=== PATIENT | male | born 1995 | race African-American/Black ===

== ENCOUNTER 2016-10-17 05:46 | Emergency (ER) | payer OTHER ==
[~2016-10-17] VITALS: Ht 190.5 cm; Wt 95.0 kg
[~2016-10-17 05:46] MED LIST: CIPR-9 PO
[2016-10-17 06:17] VITALS: BP 150/68; PULSE 64; RESP 16; TEMP 98.1; O2SAT 98
[2016-10-17] MEDS ORDERED: methylPREDNISolone SOD SUCC 125 MG/2 ML VIAL IV PUSH ONE (07:30)
[2016-10-17] MEDS ORDERED: diphenhydrAMINE HCL 50 MG/ML VIAL IV PUSH ONE (07:30)
[2016-10-17] MEDS ORDERED: FAMOTIDINE 20 MG TAB PO ONE (07:30)
[2016-10-17 07:56] LABS: AUTOMATED NEUTROPHIL # 4.8 TH/MM3 (1.8-7.7); BASOPHIL % 0.4 % (0.0-2.0); EOSINOPHIL # 0.1 TH/MM3 (0-0.4); EOSINOPHIL % 1.4 % (0.0-4.0); HEMATOCRIT 41.9 % (39.0-51.0); HEMO FLAGS DIFF FINAL; LYMPH % 31.7 % (9.0-44.0); LYMPHOCYTE # 2.6 TH/MM3 (1.0-4.8); MEAN CELL VOLUME 78.5 FL (80.0-100.0); MEAN CORPUSCULAR HEMOGLOBIN 25.4 PG (27.0-34.0); MEAN CORPUSCULAR HGB CONC 32.4 % (32.0-36.0); MONO % 8.5 % (0.0-8.0); PLATELET COUNT 217 TH/MM3 (150-450); RED BLOOD COUNT 5.34 MIL/MM3 (4.50-5.90); RED CELL DISTRIBUTION WIDTH 15.3 % (11.6-17.2); WHITE BLOOD COUNT 8.2 TH/MM3 (4.0-11.0)
--- NOTE | 2016-10-17 08:05 | PD ---
HPI Chief Complaint: Eye Problems/Injury Time Seen by Provider: 07:11 Travel History International Travel<30 days: No Contact w/Intl Traveler<30days: No Traveled to known affect area: No History of Present Illness HPI Patient is a 20-year-old male comes in complaining of swelling to his left eye as well as itching to his face. He says this started early this morning around 4 AM. He first noticed itching to the eye, and then it became very swollen. He says he has had some nasal congestion. He denies any pain to his eye. He denies any vision changes. He denies any injury to the eye. He says shortly after his eye started bothering him, he felt itching all over his face. He denies any allergies. He denies any shortness of breath or swelling in his throat. He says he was cutting fish last night, and ate some Ramone sauce and pasta. He denies any new medications. He does say that he took some ibuprofen earlier in the night. He also says that he has been using a new fabric softener. He denies itching or rash on the rest of his body. [facility] Past Medical History Medical History: Denies Significant Hx Diminished Hearing: No Tetanus Vaccination: < 5 Years Influenza Vaccination: Yes Social History Alcohol Use: Yes (SOCIALLY) Tobacco Use: No Substance Use: No Allergies-Medications (Allergen,Severity, Reaction): Coded Allergies: No Known Allergies (Unverified , 10/17/16) Reported Meds & Prescriptions Reported Meds & Active Scripts Active Prednisone 50 Mg Tab 50 Mg PO DAILY 3 Days Review of Systems Except as stated in HPI: all other systems reviewed are Neg General / Constitutional: No: Fever, Chills Eyes: No: Blurred Vision, Pain, Visual changes HENT: Positive: Rhinorrhea, No: Headaches, Lightheadedness Respiratory: No: Shortness of Breath Gastrointestinal: No: Nausea, Vomiting Musculoskeletal: No: Edema, Pain Skin: Positive Itching Neurologic: No: Weakness, Dizziness Physical Exam Narrative GENERAL: Awake and alert in no acute distress. SKIN: Warm and dry. Skin is dry, no rash seen. HEAD: Atraumatic. Normocephalic. EYES: Pupils equal and round. No scleral icterus. No injection or drainage. Edema of the upper and lower eyelid around the left eye. ENT: Mucous membranes pink and moist. No uvular swelling, no tongue swelling, no pharyngeal edema. NECK: Trachea midline. No JVD. CARDIOVASCULAR: Regular rate and rhythm. No murmur appreciated. RESPIRATORY: No accessory muscle use. Clear to auscultation. Breath sounds equal bilaterally. MUSCULOSKELETAL: No obvious deformities. No clubbing. No cyanosis. No edema. NEUROLOGICAL: Awake and alert. No obvious cranial nerve deficits. Motor grossly within normal limits. Normal speech. PSYCHIATRIC: Appropriate mood and affect; insight and judgment normal. Data Data Last Documented VS Vital Signs Date Time Temp Pulse Resp B/P Pulse Ox O2 Delivery O2 Flow Rate FiO2 10/17/16 08:55 69 18 143/67 99 10/17/16 06:17 98.1 Room Air Orders Complete Blood Count With Diff (10/17/16 07:17) Basic Metabolic Panel (Bmp) (10/17/16 07:17) Iv Access Insert/Monitor (10/17/16 07:17) Diphenhydramine Inj (Benadryl Inj) (10/17/16 07:30) Methylprednisolone So Succ Inj (Solumedr (10/17/16 07:30) Famotidine (Pepcid) (10/17/16 07:30) Labs Laboratory Tests Test 10/17/16 07:35 White Blood Count 8.2 TH/MM3 Red Blood Count 5.34 MIL/MM3 Hemoglobin 13.6 GM/DL Hematocrit 41.9 % Mean Corpuscular Volume 78.5 FL Mean Corpuscular Hemoglobin 25.4 PG Mean Corpuscular Hemoglobin 32.4 % Concent Red Cell Distribution Width 15.3 % Platelet Count 217 TH/MM3 Mean Platelet Volume 8.2 FL Neutrophils (%) (Auto) 58.0 % Lymphocytes (%) (Auto) 31.7 % Monocytes (%) (Auto) 8.5 % Eosinophils (%) (Auto) 1.4 % Basophils (%) (Auto) 0.4 % Neutrophils # (Auto) 4.8 TH/MM3 Lymphocytes # (Auto) 2.6 TH/MM3 Monocytes # (Auto) 0.7 TH/MM3 Eosinophils # (Auto) 0.1 TH/MM3 Basophils # (Auto) 0.0 TH/MM3 CBC Comment DIFF FINAL Differential Comment Sodium Level 139 MEQ/L Potassium Level 4.0 MEQ/L Chloride Level 105 MEQ/L Carbon Dioxide Level 26.7 MEQ/L Anion Gap 7 MEQ/L Blood Urea Nitrogen 16 MG/DL Creatinine 1.07 MG/DL Estimat Glomerular Filtration 105 ML/MIN Rate Random Glucose 102 MG/DL Calcium Level 8.9 MG/DL MDM Medical Decision Making Medical Screen Exam Complete: Yes Emergency Medical Condition: Yes Medical Record Reviewed: Yes Differential Diagnosis Allergic rhinitis versus allergic reaction versus preseptal cellulitis versus allergic conjunctivitis Narrative Course Patient is a 20 year old male who comes in complaining of itching of his face and swelling to his left eye. Exam shows edema of the upper and lower eyelid on the left without erythema or warmth. There are no vision changes. IV established, labs sent. Labs reveal normal kidney function. Patient given Solumedrol, Benadryl, Famotidine. Observed in the ED with improvement of his symptoms. He never had any airway issues. Patient advised this is likely an allergy. Will be discharged with prescription for Prednisone. Advised to take Benadryl as needed. Advised to return for any worsening symptoms. Specifically advised to return if he develops redness or pain to the left eye or any airway issues. Advised to follow up with a primary doctor. Diagnosis Primary Impression: Allergic reaction Qualified Code: T78.40XA - Allergic reaction, initial encounter Patient Instructions: General Allergic Reaction (ED), General Instructions Additional Instructions: Stop using the new fabric softener. Pay attention to what you are eating and putting on your skin to see if you develop a reaction. Take the Prednisone starting tomorrow and Benadryl as needed for any itching or swelling. Return to the ED at any time for any worsening symptoms. Follow up with a primary care physician. Scripts Prednisone 50 Mg Tab50 Mg PO DAILY 3 Days Ref 0 Prov:Penelope Lagunas MD 10/17/16 Disposition: DISCHARGE HOME Condition: Stable Penelope Lagunas MD Oct 17, 2016 08:05
[2016-10-17 08:07] LABS: BICARBONATE 26.7 MEQ/L (21.0-32.0)
[2016-10-17] MEDS ORDERED: PRED50 PO (08:40)
[2016-10-17 08:55] VITALS: BP 143/67
== END 2016-10-17 08:56 | disposition home or self-care (01) ==
LOC: NEPC 05:46
DX: T78.40XA Allergy, unspecified, initial encounter (principal); R09.81 Nasal congestion
CPT/HCPCS: 80048; 85025; 96374; 96375; 99283; J1200; J2930

== ENCOUNTER 2017-12-20 19:06 | Emergency (ER) | payer OTHER ==
[~2017-12-20 19:06] MED LIST changes: -CIPR-9 PO; +PRED50 PO
== END 2017-12-20 22:49 | disposition left against medical advice (07) ==
LOC: NED 19:06
DX: Z53.21 Procedure and treatment not carried out due to patient leaving prior to being seen by health care provider (principal)
CPT/HCPCS: 99281